=== PATIENT | male | born 1945 | race Caucasian/White ===

== ENCOUNTER 2017-11-20 23:24 | Emergency (ER) | payer MEDICARE, OTHER ==
[2017-11-21] MEDS ORDERED: DEXAMETHASONE 10 MG/ML VIAL PO STA (00:41)
[2017-11-21] MEDS ORDERED: FAMOTIDINE 20 MG TABLET PO STA (00:42)
--- NOTE | 2017-11-21 00:46 | ED Physician Documentation ---
History of Present Illness - Stated complaint Stated Complaint: SWELLING,PAIN RT HAND - Chief complaint Chief Complaint: Wound - History obtained from History obtained from: Patient - History of Present Illness Timing: Today - Additonal information Additional information: 72-year-old male presents the emergency department for evaluation of a wasp sting which occurred earlier this morning. The patient was struck in his hand and has had swelling and discomfort at the site. Initially the symptoms were mild, but now the patient is having more swelling on the dorsum of his hand. The patient denies tongue swelling, difficulty breathing, throat tightness or relieving factors. Symptoms are described as moderate. No other associated symptoms. No attempts at symptom management Review of Systems Constitutional: denies: Fever, Chills Cardiac: denies: Chest pain / pressure Respiratory: denies: Dyspnea Skin: reports: Other (Local reaction) Musculoskeletal: denies: Joint swelling Immunocompromised: denies: Immunocompromised, Chemotherapy PD PAST MEDICAL HISTORY - Past Medical History Cardiovascular: SD, Other Respiratory: None Endocrine/Autoimmune: None GI: None : Nocturia HEENT: Chronic vision loss, Chronic hearing loss Psych: None Musculoskeletal: None Derm: Other - Past Surgical History Cardiovascular: Coronary stent HEENT: Tonsil/Adenoidectomy Derm: Skin cancer surgery - Present Medications Home Medications: Ambulatory Orders Medication Instructions Recorded Confirmed Aspirin [Aspir-Low] 81 mg PO DAILY 07/07/15 07/07/15 Multivitamin [Multivitamins] 1 each PO DAILY 07/07/15 07/07/15 Famotidine [Pepcid] 20 mg PO BID 5 Days #10 tablet 11/21/17 hydrOXYzine HCl [Hydroxyzine HCl] 50 mg PO Q6HR PRN #30 tablet 11/21/17 - Allergies Allergies/Adverse Reactions: Allergies Allergy/AdvReac Type Severity Reaction Status Date / Time levofloxacin [From Levaquin] Allergy Edema Verified 11/20/17 23:48 PD ED PE NORMAL - General General: Alert and oriented X 3, No acute distress - HEENT HEENT: Atraumatic, PERRL, EOMI, Ears normal - Cardiac Cardiac: RRR, Strong equal pulses - Respiratory Respiratory: No respiratory distress, Clear bilaterally - Extremities Extremities: No deformity - Neuro Neuro: Alert and oriented X 3, Normal speech - Psych Psych: Normal mood PD ED PE EXPANDED - Derm Derm: Other (The patient has edema on the dorsum of his hand, this appears to be a local reaction. There is no evidence of abscess or acute cellulitis) SKin visual: 1 - swelling, tenderness Results - Vitals Vitals: Vital Signs - 24 hr 11/20/17 23:45 Temperature 36.4 C L Heart Rate 73 Respiratory 16 Rate Blood Pressure 122/96 H O2 Saturation 99 Oxygen O2 Source Room air PD MEDICAL DECISION MAKING - ED course ED course: The patient has a local reaction and will be treated as an outpatient. I discussed warning signs for decompensation and recommended returning to the emergency department immediately for any worsening or any concerns. - Sepsis Event Vital Signs: Vital Signs - 24 hr 11/20/17 23:45 Temperature 36.4 C L Heart Rate 73 Respiratory 16 Rate Blood Pressure 122/96 H O2 Saturation 99 Oxygen O2 Source Room air Departure - Departure Disposition: 01 Home, Self Care Clinical Impression: Bee sting reaction Qualifiers: Encounter type: initial encounter Injury intent: accidental or unintentional Qualified Code(s): T63.441A - Toxic effect of venom of bees, accidental ( unintentional), initial encounter Condition: Good Instructions: ED Bite Insect Follow-Up: Yvonne Willis MD [Primary Care Provider] - Within 1 week Prescriptions: hydrOXYzine HCl [Hydroxyzine HCl] 50 mg PO Q6HR PRN #30 tablet PRN Reason: Itching Famotidine [Pepcid] 20 mg PO BID 5 Days #10 tablet Comments: Please return to the emergency department for worsening symptoms or any concerns
[2017-11-21 01:41] VITALS: BP 129/64
== END 2017-11-21 01:15 | disposition home or self-care (01) ==
LOC: ED 23:24
DX: T63.461A Toxic effect of venom of wasps, accidental (unintentional), initial encounter (principal); I25.2 Old myocardial infarction; Z95.5 Presence of coronary angioplasty implant and graft; Z79.82 Long term (current) use of aspirin
CPT/HCPCS: 99283; A9270

== ENCOUNTER 2019-11-05 13:45 | Outpatient (CLI) | payer OTHER | END 2019-11-05 13:46 | disposition EMS.NT | LOC: EMS 13:45 | PROVIDERS: ATTEND Surgery | DX: H57.11 Ocular pain, right eye (principal); X58.XXXA Exposure to other specified factors, initial encounter; Y93.H2 Activity, gardening and landscaping; Y92.007 Garden or yard of unspecified non-institutional (private) residence as the place of occurrence of the external cause ==

== ENCOUNTER 2022-05-03 14:32 | Outpatient (CLI) | payer OTHER | END 2022-05-03 14:33 | disposition critical access hospital (66) | LOC: EMS 14:32 | DX: R07.89 Other chest pain (principal); R00.0 Tachycardia, unspecified; R06.02 Shortness of breath | CPT/HCPCS: A0425; A0427 ==

== ENCOUNTER 2022-05-03 14:44 | Emergency (ER) | payer OTHER ==
[2022-05-03] MEDS ORDERED: ASPIRIN CHEW 81 MG TABLET PO STA (15:01)
[2022-05-03] MEDS ORDERED: NITROGLYCERIN SL 0.4 MG TABLET SL STA (15:01)
--- NOTE | 2022-05-03 15:02 | ED Physician Documentation ---
PD HPI CHEST PAIN - Stated complaint Stated Complaint: CP - History obtained from History obtained from: Patient - Additional information Additional information: 76-year-old gentleman with history of coronary disease 2, 2 MIs in the past with stenting done at [facility]. He has had intermittent mild chest pain for the last 4 days that became much more severe today at 2 PM while walking through the snow to his mailbox. It feels like prior heart attack. He was short of breath while walking to the mailbox, but not currently. The pain is left substernal with radiation to the left arm but nowhere else. He took 4 baby aspirin at home prior to arrival. Review of Systems Ten Systems: 10 systems reviewed and negative Constitutional: reports: Reviewed and negative Cardiac: reports: Chest pain / pressure Respiratory: reports: Dyspnea PD PAST MEDICAL HISTORY - Past Medical History Cardiovascular: MN, Other Respiratory: None Endocrine/Autoimmune: None GI: None : Nocturia HEENT: Chronic vision loss, Chronic hearing loss Psych: None Musculoskeletal: None Derm: Other - Past Surgical History Cardiovascular: Coronary stent HEENT: Tonsil/Adenoidectomy Derm: Skin cancer surgery - Present Medications Home Medications: Ambulatory Orders Medication Instructions Recorded Confirmed Aspirin [Aspir-Low] 81 mg PO DAILY 07/07/15 07/07/15 Multivitamin [Multivitamins] 1 each PO DAILY 07/07/15 07/07/15 Famotidine [Pepcid] 20 mg PO BID 5 Days #10 tablet 11/21/17 hydrOXYzine HCL [Hydroxyzine HCl] 50 mg PO Q6HR PRN #30 tablet 11/21/17 - Allergies Allergies/Adverse Reactions: Allergies Allergy/AdvReac Type Severity Reaction Status Date / Time levofloxacin [From Levaquin] Allergy Edema Verified 11/20/17 23:48 PD ED PE NORMAL - Vitals Vital signs reviewed: Yes - General General: Alert and oriented X 3, No acute distress, Other (He is in a wide- complex regular tachycardia on the monitor with a heart rate of 150) - HEENT HEENT: PERRL, EOMI - Neck Neck: Supple, no meningeal sign, No bony TTP - Cardiac Cardiac: Other (Rapid and regular without murmur) - Respiratory Respiratory: No respiratory distress, Clear bilaterally - Abdomen Abdomen: Soft, Non tender - Back Back: No CVA TTP, No spinal TTP - Derm Derm: Normal color, Warm and dry - Extremities Extremities: No edema, No calf tenderness / cord - Neuro Neuro: Alert and oriented X 3, Normal speech Results - Vitals Vitals: Vital Signs - 24 hr 05/03/22 05/03/22 05/03/22 14:45 16:04 16:34 Temperature 37.1 C Heart Rate 150 H 89 78 Respiratory 22 22 19 Rate Blood Pressure 180/79 H 130/90 H 144/80 H O2 Saturation 99 99 99 Oxygen O2 Source Room air - EKG (time done) 1447 Rate: Rate (enter#) (148) Rhythm: Other (Wide-complex regular tachycardia assumed to be ventricular tach ycardia.) - Labs Labs: Laboratory Tests 05/03/22 05/03/22 05/03/22 15:30 15:30 15:30 WBC 7.3 RBC 4.57 L Hgb 14.5 Hct 43.1 MCV 94.3 H MCH 31.7 H MCHC 33.6 RDW 13.2 Plt Count 242 MPV 9.2 Neut # (Auto) 4.9 Lymph # (Auto) 1.7 [place] # (Auto) 0.5 Eos # (Auto) 0.2 Baso # (Auto) 0.1 Absolute Nucleated RBC 0.00 Nucleated RBC % 0.0 Sodium 135 Potassium 3.5 Chloride 102 Carbon Dioxide 22 Anion Gap 11.0 BUN 17 Creatinine 0.9 Estimated GFR (MDRD) 82 L Glucose 112 H Calcium 9.2 Total Bilirubin 0.6 AST 21 ALT 18 Alkaline Phosphatase 53 Troponin I High Sens 35.6 H* Total Protein 7.0 Albumin 4.0 Globulin 3.0 Albumin/Globulin Ratio 1.3 Lipase 52 H - Rads (name of study) 1v CXR Radiology: Final report received, EMP read indepedently (NAD) Procedures - Procedural sedation Sedation prep: Informed consent (verbal emergent), PE performed, ASA 2 - mild d isease Sedation Medications: propofol (80mg ivp) Mallampati classification: I Patient status during sedation: Responds to tactile Sedation recovery: Recovered uneventfully Time in sedation (Minutes): 10 - Cardioversion - Major 1 @ 1520 Time of attempt: 15:20 Indication: Tachyarrhythmia, Clinically unstable Risks, benefits, alternatives explained to: Pt CS via: Pads, AP approach Sync: 200j Post cardioversion rhythm: NSR Performed by: ED PD Medical Decision Making - ED course ED course: 76-year-old gentleman with history of coronary disease presents with ischemic sounding chest pain similar to prior MN that was intermittent for the last few days but now more constant and severe over the last hour or 2. He was brought in by ambulance and attended to immediately, as his EKG looks like he is in a wide-complex tachycardia which is assumed to be ventricular tachycardia. That said his other vital signs are reassuring and he appears well albeit having pain. He was initially administered 150 mg of IV amiodarone without cardioversion so electrical cardioversion with sedation was prepared for emergently. Subsequently he consented verbally for emergent cardioversion and he was given 80 mg of IV propofol with good effect and then the first shock at 200 J resulted in cardioversion to sinus rhythm. Repeat EKG done. Subsequent cardioversion, repeat EKG did demonstrate inferior STEMI and STEMI code was called at 3:27 PM. He was accepted to [facility] ED by Dr. De Los Santos, ED doctor there at 3:31 PM. Covers were completed and [facility] was activated for transport. Post cardioversion he is mentation is normal, but blood pressure 98/67 so beta- blockade was held. Updated the by phone. She notes that she may not be able to make it up to [place] because of the snow. That said their son lives in [place]. Update 3:54 PM, blood pressure now 140/100, heart rate in the mid 80s so beta- blockade was ordered. There is a delay to transport, because of the weather [facility] could not fly, [facility]. The lead medics still felt that was faster as there is significant snow and ice on the ground that would delay ground transport. I was notified approximately 4:[address] [facility] now had another STEMI in their department and had reversed the decision to take this patient. [facility] was called for potential transfer at that time. At 4:42 PM he was accepted graciously to [facility] ED by Dr. Mercer. [facility] is already here. I tried to update the by phone regarding the change in disposition, but there was no answer, and no voicemail. After the patient was transferred the did call back and I updated her as to the disposition to [facility]. - Critical Care Time(min): 40 Time Includes: Direct patient care, Review records, Reassess patient, Document care, Coordinate care, Medical consult, Family consult for tx dec Data interpretation: Labs, Pulse ox Procedures included in critical care time: Peripheral IV Procedures excluded from critical care time: See progress note (Procedural sedation and cardioversion) Departure - Departure Disposition: 02 Transfer Acute Care Hosp Clinical Impression: Ventricular tachycardia, ST elevation myocardial infarction (STEMI) of inferior wall Condition: Critical Discharge Date/Time: 05/03/22 17:10
[2022-05-03] MEDS ORDERED: AMIODARONE 150 MG/3 ML VIAL IVP STA (15:03)
[2022-05-03] MEDS ORDERED: PROPOFOL 200 MG/20 ML VIAL IVP STA (15:04)
[2022-05-03 15:34] LABS: BASOPHILS # (AUTO) 0.1 10^3/uL (0.0-0.1); BASOPHILS % (AUTO) 0.7 %; EOSINOPHILS # (AUTO) 0.2 10^3/uL (0.0-0.7); EOSINOPHILS % (AUTO) 2.5 %; HCT - HEMATOCRIT 43.1 % (42.0-52.0); HGB - HEMOGLOBIN 14.5 g/dL (14.0-18.0); LYMPHOCYTES # (AUTO) 1.7 10^3/uL (1.5-3.5); LYMPHOCYTES % (AUTO) 23.9 %; MEAN CORPUSCULAR HEMOGLOBIN 31.7 pg (27.0-31.0); MEAN CORPUSCULAR HGB CONC 33.6 g/dL (32.0-36.0); MEAN CORPUSCULAR VOLUME 94.3 fL (80.0-94.0); MEAN PLATELET VOLUME 9.2 fL (7.4-11.4); MONOCYTES # (AUTO) 0.5 10^3/uL (0.0-1.0); MONOCYTES % (AUTO) 6.3 %; NEUTROPHILS # (AUTO) 4.9 10^3/uL (1.5-6.6); NEUTROPHILS % (AUTO) 66.5 %; PLT - PLATELET COUNT 242 10^3/uL (130-450); RED BLOOD COUNT 4.57 10^6/uL (4.70-6.10); RED CELL DISTRIBUTION WIDTH 13.2 % (12.0-15.0); WHITE BLOOD COUNT 7.3 x10^3/uL (4.8-10.8)
[2022-05-03 15:50] LABS: ALBUMIN/GLOBULIN RATIO 1.3 (1.0-2.2); BILIRUBIN,TOTAL 0.6 mg/dL (0.2-1.0); CALCIUM 9.2 mg/dL (8.5-10.3); CREATININE 0.9 mg/dL (0.6-1.2); POTASSIUM 3.5 mmol/L (3.5-5.0)
[2022-05-03] MEDS ORDERED: METOPROLOL 5 MG/5 ML VIAL IVP STA (15:54)
[2022-05-03] MEDS ORDERED: HEPARIN 25000UNITS/500ML (D5W) 25,000 UNIT/500 ML BAG IV SCH (16:00)
--- NOTE | 2022-05-03 16:05 | XRAY Report ---
PROCEDURE: Chest 1 View X-Ray INDICATIONS: Chest Pain TECHNIQUE: One view of the chest was acquired. COMPARISON: None. FINDINGS: Surgical changes and devices: None. Lungs and pleura: No pleural effusions or pneumothorax. Lungs are clear. Mediastinum: Mediastinal contours appear normal. Heart size is normal. Bones and chest wall: No suspicious bony lesions. Overlying soft tissues appear unremarkable. IMPRESSION: No acute cardiopulmonary pathology. Reviewed by: Oneal Carson MD on 05/03/2022 4:04 PM [facility] Approved by: Oneal Carson MD on 05/03/2022 4:04 PM [facility] Station ID: [id number]
[2022-05-03 16:58] VITALS: BP 144/80
== END 2022-05-03 17:10 | disposition short-term general hospital (02) ==
LOC: EDUNIT# → ED 14:44
DX: I21.3 ST elevation (STEMI) myocardial infarction of unspecified site (principal)
CPT/HCPCS: 36415; 71045; 80053; 83690; 84484; 85025; 92960; 93005; 96374; 96375; 99152; 99291; A9270